=== PATIENT | male | born 1955 | race Caucasian/White ===

== ENCOUNTER → 2020-05-28 | Outpatient (CLI) | payer MEDICARE | LOC: KOH-I 09:06 | DX: M79.672 Pain in left foot (principal); M79.671 Pain in right foot; M77.52 Other enthesopathy of left foot and ankle; M77.51 Other enthesopathy of right foot and ankle | CPT/HCPCS: 73630 ==

== ENCOUNTER → 2020-06-01 | Outpatient (CLI) | payer MEDICARE | LOC: KOH-I 11:13 | DX: I73.9 Peripheral vascular disease, unspecified (principal) | CPT/HCPCS: 93925 ==

== ENCOUNTER 2021-08-16 08:40 | Emergency (ER) | payer MEDICARE ==
[2021-08-16 08:54] LABS: HEMOGLOBIN 15.6 gm/dl (14.0-17.5); RED BLOOD COUNT 5.26 M/UL (4.20-5.50); WHITE BLOOD COUNT 10.6 K/UL (4.5-11.0)
[2021-08-16 09:16] LABS: BUN/CREATININE RATIO 17 (0-10)
== END 2021-08-16 12:38 | disposition home or self-care (01) ==
LOC: ER1 08:40
PROVIDERS: Family Medicine
DX: I95.9 Hypotension, unspecified (principal); Z95.1 Presence of aortocoronary bypass graft; Z79.82 Long term (current) use of aspirin; Z79.899 Other long term (current) drug therapy
CPT/HCPCS: 80053; 82550; 82553; 83880; 84443; 84484; 85025; 85610; 93005; 99284

== ENCOUNTER → 2021-08-16 | Outpatient (CLI) | payer MEDICARE | LOC: EXRD 07:57 | DX: R07.89 Other chest pain (principal); R09.89 Other specified symptoms and signs involving the circulatory and respiratory systems | CPT/HCPCS: 71046 ==

== ENCOUNTER → 2021-11-04 | Outpatient (CLI) | payer MEDICARE | LOC: HEART 5 07:59 | DX: I25.10 Atherosclerotic heart disease of native coronary artery without angina pectoris (principal); R01.1 Cardiac murmur, unspecified; I35.1 Nonrheumatic aortic (valve) insufficiency | CPT/HCPCS: 93306 ==